=== PATIENT | female | born 1960 | race Asian ===

== ENCOUNTER → 2025-03-25 08:33 | Outpatient (REF) | payer BC, SELFPAY ==
[2025-03-25 09:00] VITALS: BP 129/78; BP_SYST 69
== END ==
LOC: RADI 08:33
PROVIDERS: ATTENDING PHYSICIAN Nurse Practitioner Family; FAMILY PHYSICIAN Family Medicine
DX: E04.2 Nontoxic multinodular goiter (principal)
CPT/HCPCS: 10005; 10006; 88173